=== PATIENT | female | born 1990 | race African-American/Black ===

== ENCOUNTER 2016-11-16 01:17 | Emergency (ER) | payer OTHER ==
[~2016-11-16] VITALS: Ht 157.5 cm; Wt 41.0 kg
[2016-11-16 01:20] VITALS: BP 127/83
== END 2016-11-16 04:24 | disposition left against medical advice (07) ==
LOC: ER 01:17
DX: R07.81 Pleurodynia (principal); Z53.21 Procedure and treatment not carried out due to patient leaving prior to being seen by health care provider